=== PATIENT | male | born 1970 | race Caucasian/White ===

== ENCOUNTER → 2021-04-28 09:04 | Outpatient (CLI) | payer OTHER, SELFPAY ==
[2021-04-28 19:44] LABS: Prostate Specific Antigen 3.49 ng/mL (0.10-4.00)
== END ==
PROVIDERS: PCP Physician Assistant; Visit Provider Specialist
DX: N13.8 Other obstructive and reflux uropathy (principal); N40.1 Benign prostatic hyperplasia with lower urinary tract symptoms; R97.20 Elevated prostate specific antigen [PSA]
CPT/HCPCS: 84153

== ENCOUNTER → 2022-09-23 13:00 | Outpatient (CLI) | payer OTHER, SELFPAY ==
--- NOTE | 2022-09-23 13:01 | DI.MRI.S_ITS ---
PROCEDURE: MR PELIS WO/W CON INDICATIONS: Prostate TECHNIQUE: Coronal HASTE, axial T1 FSE with fat saturation, 3-plane nonbreath-hold T2 FSE. After the administration of contrast, dynamic axial, delayed axial and coronal VIBE or 2-D FLASH with fat saturation through the pelvis. Optional diffusion weighted imaging and ADC may be performed. COMPARISON: None. FINDINGS: Image quality: Diffusion weighted and dynamic contrast enhanced images are diagnostic. Prostate: Gland size is 5.1 x 4.5 x 4.1 cm; ellipsoid gland volume is 49 mL. Lesion 1: Location: Left medial peripheral zone, base (5/15). Size: 5 x 6 mm T2 signal: Moderately hypointense DWI: Moderately hyperintense ADC: Moderately hypointense Enhancement: Positive Extracapsular extension: No PI-RADS score: 4 Genitourinary system: Bladder wall thickness is normal. Distal ureters are non distended. Bowel and peritoneum: No pathologic free pelvic fluid. Inferior colon and small bowel loops are normal in caliber. Nodes and vessels: No pelvic or inguinal adenopathy by size criteria. Iliac vessels are normal in caliber. Soft tissues: No inguinal hernias. Bones: Marrow demonstrates normal overall signal, without lesions to suggest metastases. IMPRESSION: PI-RADS for lesion in the left medial peripheral zone of the apex. No extracapsular extension. No suspicious pelvic lymph nodes or gross of osseous abnormality. Dictated by: Rob Van M.D. on 09/23/2022 at 15:38 Approved by: Rob Van M.D. on 09/23/2022 at 15:41
== END ==
PROVIDERS: PCP Family Medicine; Referring Provider Specialist; Visit Provider Specialist
DX: N40.1 Benign prostatic hyperplasia with lower urinary tract symptoms (principal); N13.8 Other obstructive and reflux uropathy; R97.20 Elevated prostate specific antigen [PSA]; N42.9 Disorder of prostate, unspecified
CPT/HCPCS: 72197; A9579